=== PATIENT | female | born 1995 | race Caucasian/White ===

== ENCOUNTER 2020-08-23 13:11 | Emergency (ER) | payer OTHER ==
[2020-08-23 13:21] VITALS: BP 112/70; PULSE 89; TEMP 97.8; BMI 24.1
== END 2020-08-23 15:00 | disposition home or self-care (01) ==
LOC: JERFT 13:11
PROC: 0HQGXZZ Repair Left Hand Skin, External Approach (ICD-10-PCS; principal; 2020-08-23)
DX: S61.211A Laceration without foreign body of left index finger without damage to nail, initial encounter (principal)
CPT/HCPCS: 99282-25